=== PATIENT | male | born 1965 | race Caucasian/White ===

== ENCOUNTER → 2016-11-27 | Outpatient (CLI) | payer OTHER, MEDICAID | LOC: BHCLAF 13:30 | PROVIDERS: ATTEND Internal Medicine Cardiovascular Disease | DX: R07.9 Chest pain, unspecified (principal); R01.1 Cardiac murmur, unspecified | CPT/HCPCS: 93005-PO ==

== ENCOUNTER → 2016-12-12 | Outpatient (CLI) | payer OTHER, MEDICAID | LOC: BHFA 16:15 | PROVIDERS: ATTEND Internal Medicine Cardiovascular Disease | DX: R01.1 Cardiac murmur, unspecified (principal); R07.9 Chest pain, unspecified ==

== ENCOUNTER → 2016-12-18 | Outpatient (CLI) | payer OTHER, MEDICAID | LOC: BHFA 14:00 | PROVIDERS: ATTEND Internal Medicine Cardiovascular Disease | DX: R07.9 Chest pain, unspecified (principal) | CPT/HCPCS: 78452; 93017; A9500; J2785 ==

== ENCOUNTER → 2017-04-19 | Outpatient (CLI) | payer OTHER, MEDICAID | LOC: FIMAGING 09:01 | PROVIDERS: ATTEND Internal Medicine | DX: M54.10 Radiculopathy, site unspecified (principal); R26.81 Unsteadiness on feet; M25.551 Pain in right hip; M51.36 Other intervertebral disc degeneration, lumbar region; M51.37 Other intervertebral disc degeneration, lumbosacral region; M43.06 Spondylolysis, lumbar region; M51.26 Other intervertebral disc displacement, lumbar region ==